=== PATIENT | female | born 1970 | race Hispanic/Latino ===

== ENCOUNTER 2017-10-03 08:21 | Day surgery (SDC) | payer BC ==
[2017-10-03] MEDS ORDERED: ECOTRIN PO ONE (09:02)
[2017-10-03] MEDS ORDERED: NACL 0.9% 500 ML 500 ML IV SCH (10:00)
[2017-10-03] MEDS ORDERED: HEPARIN/NS 5000 UNIT/500ML(CATH LAB) 1,000 ML IR ONE (11:14)
[2017-10-03] MEDS ORDERED: HEPARIN 10,000 UNITS/10 ML ONE (11:14)
[2017-10-03] MEDS ORDERED: NITROGLYCERIN SYRINGE 0 ML ONE (11:15)
[2017-10-03] MEDS ORDERED: CALAN ONE ×2 (11:15→11:25)
[2017-10-03] MEDS ORDERED: XYLOCAINE 2% INFILTRATI ONE (11:15)
[2017-10-03] MEDS: VERSED ONE ×2 (11:40→11:47)
[2017-10-03] MEDS: SUBLIMAZE ONE ×2 (11:40→11:46)
[2017-10-03] MEDS: CALAN ONE ×2 (11:44→11:48)
[2017-10-03] MEDS ORDERED: VERSED ONE (11:52)
--- NOTE | 2017-10-03 12:30 | Cardiac Catherization Report ---
INDICATION FOR PROCEDURE: A 47-year-old white female who was evaluated for atypical chest pains and she has history of hypertension and premature coronary artery disease in the father. Hence had a stress EKG performed, which was abnormal. Hence scheduled for cardiac catheterization for definitive diagnosis and treatment. She is aware of alternatives of medical therapy versus stress nuclear imaging. She had noninvasive CTA of the coronaries. She elected to have cardiac catheterization done for definitive diagnosis and treatment. The patient is aware of the procedure, potential complications, and alternatives of therapy available. DESCRIPTION OF PROCEDURE: The patient was brought to the catheterization laboratory in a fasting condition. Right wrist area and forearm thoroughly cleansed. The patient was evaluated for moderate sedation and was felt to be appropriate. Received IV Versed and fentanyl. Subsequently, local anesthesia was given in the right wrist area and right radial artery puncture was made using 21-gauge arterial puncture needle. Subsequently, 5-Welsh sheath was introduced. A 5-Welsh multipurpose catheter was used to obtain the angiograms of the left coronary artery in multiple views, right coronary artery in multiple views and left ventriculogram done in PADILLA projection using hand injection. At the end of the procedure, catheter and sheath were removed. Good hemostasis was achieved with pressure bandage. Following findings were noted. HEMODYNAMICS: 1. Opening aortic pressure 164/80, left ventricular pressure 166/24, no gradient across the aortic valve. Estimated ejection fraction 55%. 2. Left ventriculogram done in PADILLA projection shows normal size left ventricle with normal contractility. Mitral regurgitation could not be evaluated. Ejection fraction was estimated to be 55%. 3. Right coronary artery arises normally from right coronary cusp, angiographically smooth and normal. It is dominant vessel. 4. Left coronary artery arises normally from left coronary cusp. Left main, LAD and its branches and circumflex artery and its branch are angiographically smooth and normal. FINAL IMPRESSION: 1. Normal sized left ventricle with normal contractility, mildly elevated end diastolic pressure. 2. Normal coronary anatomy angiographically. 3. At this time, the patient does not have any significant coronary artery disease documented. We will continue risk factor modification. Procedure was uncomplicated. Right radial hemostasis was achieved with a radial band. Findings were explained to the patient. JOB# [id number] MCKENZIE/LYNN
--- NOTE | 2017-10-03 13:42 | Short Stay Summary ---
Short Stay Documentation Date of service: 10/03/17 - History H&P: obtained from office - Allergies and Medications Current Medications: Allergies No Known Allergies Allergy (Verified 10/03/17 09:09) Home Medications Medication Instructions Recorded Confirmed Last Taken Type Aspirin [Aspir-Low] 81 mg PO DAILY 10/03/17 10/03/17 10/03/17 History 81mg AtorvaSTATin [Lipitor] 40 mg PO QHS 10/03/17 10/03/17 10/02/17 History 40mg Labetalol HCl 100 mg PO BID 10/03/17 10/03/17 10/03/17 History 100mg Levothyroxine Sodium [Synthroid] 100 mcg PO DAILY 10/03/17 10/03/17 10/03/17 History 100mcg Liothyronine(Nf) 5 mcg PO DAILY 10/03/17 10/03/17 10/03/17 History 5mcg Active Medications Sodium Chloride (Nacl 0.9% 500 Ml) 500 mls @ 50 mls/hr IV DIRECT MAIK Stop: 10/03/17 19:59 Last Admin: 10/03/17 09:20 Dose: 50 mls/hr - Brief post op/procedure progress note Date of procedure: 10/03/17 Pre-op diagnosis: abnormal stress test; chest pain Post-op diagnosis: same Procedure: C - see cath report Anesthesia: local Estimated blood loss: none Condition: stable - Disposition Condition at discharge: Stable Disposition: [id number] TO HOME OR SELFCARE - Discharge Diagnoses (1) Normal coronary arteries Status: Chronic (2) Chest pain Status: Chronic Short Stay Discharge Plan Activity: advance as tolerated Diet: regular Wound: open to air, keep clean and dry, per your surgeon's advice Follow up with: TREVOR FRIED MD [Primary Care Provider] - 7 Days Forms: CardCath PCI D/C Instructions, Work/School Excuse Out Patient
[2017-10-03 15:25] VITALS: BP 120/74
== END 2017-10-03 15:00 | disposition home or self-care (01) ==
LOC: CATHLABREC 08:21
PROVIDERS: ATTEND Internal Medicine
DX: R07.89 Other chest pain (principal); I10 Essential (primary) hypertension; E78.00 Pure hypercholesterolemia, unspecified; E03.9 Hypothyroidism, unspecified; Z79.82 Long term (current) use of aspirin; Z79.899 Other long term (current) drug therapy; Z72.89 Other problems related to lifestyle; Z98.890 Other specified postprocedural states; Z82.49 Family history of ischemic heart disease and other diseases of the circulatory system
CPT/HCPCS: 93005; 93010; 93458; 99156; C1894; J1644; J2250; J3010; J7040; Q9967